=== PATIENT | female | born 1975 | race Two or more races ===

== ENCOUNTER 2018-11-19 13:15 | Emergency (ER) | payer OTHER ==
[~2018-11-19] VITALS: Ht 165.1 cm; Wt 66.7 kg
[2018-11-19 13:22] VITALS: BP 135/88
[2018-11-19] MEDS ORDERED: MECLIZINE HCL 12.5 MG TABLET PO ONE (14:00)
[2018-11-19 14:22] LABS: APPEARANCE,URINE Clear (CLEAR); BILIRUBIN,URINE Negative (NEGATIVE); BLOOD, URINE Trace-lysed Ery/uL (NEGATIVE); COLOR,URINE Yellow (YELLOW); KETONES,URINE Negative (NEGATIVE); LEUKOCYTE ESTERASE ,URINE Negative (NEGATIVE); NITRITE, URINE Negative (NEGATIVE); PROTEIN,URINE Negative (NEGATIVE); UGLUCOSE Negative (NEGATIVE); UROBILINOGEN,URINE 0.2 EU/dL (0.2)
[2018-11-19 14:29] LABS: BACTERIA,URINE None seen /HPF (None Seen); RBC,URINE 0-2 /HPF (0-2); SQUAMOUS EPITHELIAL CELL,UR None Seen /HPF (None Seen); WBC,URINE NONE SEEN /HPF (0-3)
--- NOTE | 2018-11-19 14:39 | NUR ---
For discharge. [facility] given verbalized understanding home ambulatory in stable condition
== END 2018-11-19 14:40 | disposition home or self-care (01) ==
LOC: ER 13:18
DX: H81.10 Benign paroxysmal vertigo, unspecified ear (principal); R31.9 Hematuria, unspecified; E78.00 Pure hypercholesterolemia, unspecified
CPT/HCPCS: 81001; 84703; 99283; A4606; Z7610; 81000-TC